=== PATIENT | male | born 2000 | race African-American/Black ===

== ENCOUNTER 2023-05-01 13:34 | Emergency (ER) | payer OTHER, SELFPAY ==
--- NOTE | 2023-05-01 13:38 | ED.GENADULT ---
HPI - General Adult General Chief complaint: Chest Pain Stated complaint: Shoulder/Chest pain Time Seen by Provider: 05/01/23 13:57 Source: patient, RN notes reviewed and old records reviewed Mode of arrival: ambulatory Limitations: no limitations History of Present Illness HPI narrative: 23-year-old male presents to the [facility] with complaints of left-sided chest pressure that radiates to his left shoulder. Patient states the symptoms started on Sunday and has gradually gotten worse. Denies any nausea, shortness of breath. Denies any vomiting. Pain does not change with movement. Unable to reproduce pain with palpation States that when he leans back or leans forward he has increased pressure to the left pectoral area. Denies any cardiac history Onset (ago): day(s) (2) Review of Systems Review of Systems: All systems reviewed & are unremarkable except as noted in HPI and below Constitutional: Constitutional: Reports no additional constitutional complaints Eyes: Eyes: Reports no additional eye complaints ENT: Reports system reviewed and no additional complaints, except as documented Cardiovascular: Cardiovascular: Reports as per HPI, Reports chest pain and Denies dyspnea Respiratory: Respiratory: Reports no additional respiratory complaints, Denies chest congestion, Denies cough and Denies dyspnea Gastrointestinal: Gastrointestinal: Reports no additional gastrointestinal complaints, Denies abdominal pain, Denies nausea and Denies vomiting Musculoskeletal: Musculoskeletal: Reports no additional musculoskeletal complaints Integumentary/Breasts: Skin/Breast: Reports system reviewed and no additional complaints, except as docu Neurologic: Reports system reviewed and no additional complaints, except as documented Psychiatric: Psychiatric: Reports no additional psychiatric complaints Allergic/Immunologic: Allergic/Immunologic: Reports no additional allergic/immunologic complaints [facility] Past Medical History Medical History Patient denies medical problems Surgical History Surgical History (Updated 05/01/23 @ 14:19 by July Piña APRN) No pertinent past surgical history Social History Social History (Updated 05/01/23 @ 14:20 by July Piña APRN) Smoking status: Current every day smoker Substance use type: marijuana Gender identity (if verbalized by the patient): Male Comments At the time of my signature, I reviewed and agree with the nursing past medical, surgical, social, and family history. There is no relevant family history pertinent to the patient complaint. Exam Const: General: cooperative, healthy appearing, comfortable, no acute distress, well developed, alert and well nourished Nutritional Appearance: well nourished Orientation/consciousness: patient oriented x3 Limitations: no limitations HENMT: Head: normal to inspection Ears: hearing grossly normal bilaterally and external ears normal Face/Nose/Sinus: Normal external nose present, Normal nares present, Normal nasal mucous membranes and turbinates present, normal facial exam and face symmetric Face and sinus: normal facial exam and face symmetric Mouth: Yes Normal oral and palatal mucosa present, Yes lip normal and Yes moist mucous membranes Eyes: General: appearance normal, both eyes and all related structures Alignment and Position: alignment normal Periorbital: periorbital findings normal Pupils: Equal, round and reactive pupils present EOM: EOMs intact bilaterally Neck: Neck: normal visual inspection, full ROM, no lymphadenopathy and no meningeal signs Chest: Chest palpation & inspection: normal inspection of the chest Resp: Effort & Inspection: normal respiratory effort and able to speak in complete sentences Auscultation: clear to auscultation bilaterally, no crackles, no rales, no rhonchi and no wheezes Cardio: Rate: regular rate Rhythm: regular rhythm Back/Spine/Pe
[2023-05-01 13:42] VITALS: BP 130/91; PULSE 76; RESP 16; TEMP 37; O2SAT 100
--- NOTE | 2023-05-01 13:45 | ECG_ITS ---
Measurements Intervals [place] Rate: 64 P: 71 TX: 163 QRS: 55 QRSD: 88 T: 58 QT: 364 QTc: 378 Interpretive Statements SINUS RHYTHM WITH SINUS ARRHYTHMIA INCOMPLETE RIGHT BUNDLE BRANCH BLOCK NO PREVIOUS ECG AVAILABLE FOR COMPARISON Electronically Signed On 05-01-2023 13:59:52 DIRECTOR INDEX by David Mcdaniels M.D.
--- NOTE | 2023-05-01 14:31 | PC.NURSE ---
1420 INFORMED PT TO GO TO [facility] , NOTHING TO EAT OR DRINK
== END 2023-05-01 14:23 | disposition short-term general hospital (02) ==
PROVIDERS: Emergency Provider Nurse Practitioner
DX: R07.9 Chest pain, unspecified (principal); F17.210 Nicotine dependence, cigarettes, uncomplicated
CPT/HCPCS: 93005; 99213; G0463

== ENCOUNTER 2023-05-01 14:40 | Emergency (ER) | payer OTHER, SELFPAY ==
--- NOTE | ~2023-05-01 | XR_ITS ---
EXAMINATION: XR chest 2V DATE: 05/01/2023 15:07 INDICATION: Left-sided chest pain TECHNIQUE: PA and lateral views of the chest are obtained. COMPARISON: None available FINDINGS: The lungs are free of acute opacities. No pleural effusion or pneumothorax. The cardiomedia stinal silhouette is normal. The visualized bones and soft tissues are unremarkable. IMPRESSION: 1. No acute cardiopulmonary abnormality. Reviewed, dictated and finalized at location L. PROGRAMMER
[2023-05-01 14:43] VITALS: BP 151/87; PULSE 67; RESP 14; TEMP 36.9; O2SAT 100
--- NOTE | 2023-05-01 14:43 | ECG_ITS ---
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
[2023-05-01 14:56] VITALS: PULSE 65
--- NOTE | 2023-05-01 14:58 | ED.CHESTPAIN ---
HPI - Chest Pain General Chief Complaint: Chest Pain Stated Complaint: chest pain Time Seen by Provider: 05/01/23 14:57 Source: patient Mode of arrival: ambulatory Limitations: no limitations History of Present Illness HPI narrative: Reji is a 23-year-old male patient presenting to the ER for left-sided chest pain with pain intermittently radiating into the left arm x2 days. He reports no cardiac history. Denies any history of GERD, bronchitis but does have history of asthma. 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 Rates his pain currently 3/10. Related Data Allergies Allergy/AdvReac Type Severity Reaction Status Date / Time No Known Allergies Allergy Verified 05/01/23 14:48 Review of Systems Review of Systems: Pertinent positives per HPI. Patient denies any fever, chills, rash, headache, visual changes, dizziness, cough, runny nose, sore throat, shortness of breath, palpitations, nausea, vomiting, diarrhea, constipation, abdominal pain, or any urinary issues. PMFSH Past Medical History Medical History Patient denies medical problems Surgical History Surgical History No pertinent past surgical history Social History Social History Smoking status: Current every day smoker Substance use type: marijuana Gender identity (if verbalized by the patient): Male Comments At the time of my signature, I reviewed and agree with the nursing past medical, surgical, social, and family history. There is no relevant family history pertinent to the patient complaint. Exam Narrative: General: Well-developed, well nourished, in no apparent distress Head: Normocephalic, atraumatic. Chest wall: No deformity, even rise and fall of the chest wall with respirations, nontender to palpation Cardio: Regular rate and rhythm, s1 and s2 normal, no murmur appreciated. Resp: Clear to auscultation bilaterally, no rhonchi, rales, wheezing or rubs. Extremities: No deformity, no edema, no cyanosis, capillary refill less than 2 seconds, peripheral pulses palpable and strong. Integumentary: [place], warm, and dry, intact without lesion, no rashes. Course Course Emergency Course: Portions of this record may have been created with voice recognition software. Vital Signs Vital signs: Vital Signs Temperature 36.9 C 05/01/23 14:43 Pulse Rate 67 05/01/23 14:43 Respiratory Rate 14 05/01/23 14:43 Blood Pressure 151/87 H 05/01/23 14:43 Pulse Oximetry 100 05/01/23 14:43 Oxygen Delivery Room Air 05/01/23 14:43 Temperature 36.9 C 05/01/23 14:43 Pulse Rate 65 05/01/23 14:56 Respiratory Rate 14 05/01/23 14:43 Blood Pressure 151/87 H 05/01/23 14:43 Pulse Oximetry 100 05/01/23 14:43 Oxygen Delivery Room Air 05/01/23 14:43 Vital signs reviewed MDM - Chest Pain MDM Narrative Medical decision making narrative: At the time of visit patient is resting comfortably on the exam table. Patient appears to be nontoxic. Labs, EKG, and chest x-ray was performed. EKG shows sinus rhythm with possible left atrial enlargement with a incomplete right bundle-branch block with heart rate of 74. Labs show a white blood cell count of 6.1, H&H is 13.9 and 42.5, platelet counts 171, PT, INR, APTT and D-dimer are all within normal limits. CMP is unremarkable. Troponin level is less than 0.012 with a lipase of 88. Chest x-ray is negative for any acute cardiopulmonary disease. Heart score is 0. Supportive measures were discussed with the patient and they voiced understanding discharge instructions and agrees to treatment plan. Return precautions reviewed Differential Diagnosis Differential diagnosis: Likely stable angin
[2023-05-01 14:59] VITALS: O2SAT 100
[2023-05-01 15:00] LABS: Basophils Percent Auto 0.5 % (0.2-1.2); Eosinophils Absolute Auto 0.1 K/mm3 (0-0.3); Hematocrit 42.5 % (42.0-52.0); Hemoglobin 13.9 g/dL (14.0-18.0); Immature Granulocyte Absolute 0.01 K/mm3 (0.00-0.031); Immature Granulocyte Percent A 0.2 % (0-0.5); Lymphocytes Absolute Auto 2.51 K/mm3 (0.9-3.2); Lymphocytes Percent Auto 41.4 % (18.3-44.2); Mean Corpuscular HGB Conc 32.7 g/dl (32-36); Mean Corpuscular Hemoglobin 31.7 pg (26-34); Mean Corpuscular Volume 96.8 fl (80-100); Mean Platelet Volume 11.1 fl (7.4-10.4); Monocytes Absolute Auto 0.6 K/mm3 (0.1-0.6); Monocytes Percent Auto 9.9 % (2.6-8.5); Neutrophils Absolute Auto 2.9 K/mm3 (1.3-6.7); Platelet Count Result 171 k/mm3 (150-375); Red Blood Count 4.39 M/mm3 (4.6-6.20); Red Cell Distribution Width 12.3 % (11.5-14.5); White Blood Count 6.1 K/mm3 (4.5-10.0)
[2023-05-01 15:09] LABS: Alanine Aminotransferase 32 U/L (6-50); Albumin Level 4.6 g/dL (3.5-5.1); Alkaline Phosphatase 63 U/L (38-126); Anion Gap 7 mmol/L (8-16); Aspartate Amino Transferase 30 U/L (17-59); Bilirubin,Total 0.8 mg/dL (0.2-1.3); Blood Urea Nitrogen 14 mg/dL (9-20); Calcium 9.6 mg/dL (8.4-10.2); Carbon Dioxide 29 mmol/L (22-30); Chloride 105 mmol/L (98-107); Estimated CRCL calculation 104 ml/min; Estimated Glomerular Filt Rate > 60; Glucose 90 mg/dL (65-110); Lipase 88 U/L (23-300); Potassium 3.7 mmol/L (3.4-5.0); Sodium 141 mmol/L (137-145)
[2023-05-01 15:11] LABS: Partial Thromboplastin Time 35.8 SECONDS (22.3-36.8)
[2023-05-01] MEDS: ASPIRIN 81 MG CHEWABLE TABLET 324 MG PO (15:12)
[2023-05-01 15:19] LABS: INR 1.1; Prothrombin Time 14.2 Seconds (11.1-14.7)
[2023-05-01 15:21] LABS: Troponin I < 0.012 ng/mL (0.000-0.034)
[2023-05-01 15:28] LABS: D Dimer 0.28 ug/mL (<0.48)
[2023-05-01 17:17] VITALS: BP 146/80; PULSE 67; RESP 20; O2SAT 97
== END 2023-05-01 17:24 | disposition home or self-care (01) ==
PROVIDERS: Emergency Medicine; Emergency Provider Nurse Practitioner Family
DX: R07.89 Other chest pain (principal); I45.10 Unspecified right bundle-branch block
CPT/HCPCS: 36415; 71046; 80053; 83690; 84484; 85025; 85380; 85610; 85730; 93005; 99284; A9270